=== PATIENT | female | born 1975 | race African-American/Black ===

== ENCOUNTER 2020-07-07 05:25 | Emergency (ER) | payer OTHER ==
[~2020-07-07] VITALS: Ht 175.3 cm; Wt 131.5 kg
[2020-07-07] MEDS ORDERED: ELIQUIS2.5 MG (05:38)
[2020-07-07] MEDS ORDERED: TOPROL XL25 M1 (05:38)
[2020-07-07] MEDS ORDERED: FORTAMET1000 MG (05:39)
[2020-07-07] MEDS ORDERED: LANTUS SOL100 UNIT/1 (05:39)
[2020-07-07] MEDS ORDERED: HUMALOG100 UNIT/1 (05:39)
== END 2020-07-07 12:11 | disposition home or self-care (01) ==
LOC: ER 05:25 → CPU-OBS 08:17 → ER 12:11
DX: R07.89 Other chest pain (principal); R06.02 Shortness of breath; Z20.828 Contact with and (suspected) exposure to other viral communicable diseases
CPT/HCPCS: 71250; 82805; 36600; 93005; G0378; G0379

== ENCOUNTER 2021-01-06 08:26 | Emergency (ER) | payer OTHER ==
[~2021-01-06] VITALS: Ht 175.3 cm; Wt 128.8 kg
[~2021-01-06 08:26] MED LIST: ELIQUIS2.5 MG; FORTAMET1000 MG; HUMALOG100 UNIT/1; LANTUS SOL100 UNIT/1; TOPROL XL25 M1
[2021-01-06] MEDS ORDERED: JENTADUETO 2.51 EAC2 (08:49)
[2021-01-06] MEDS ORDERED: CLINDAMYCIN HC300 MG PO (17:02)
[2021-01-06] MEDS ORDERED: INTESTINEX680 M1 PO (17:02)
== END 2021-01-06 17:10 | disposition home or self-care (01) ==
LOC: ER 08:26
DX: L02.31 Cutaneous abscess of buttock (principal); E11.65 Type 2 diabetes mellitus with hyperglycemia; Z79.4 Long term (current) use of insulin

== ENCOUNTER 2021-01-21 19:44 | Emergency (ER) | payer OTHER ==
[~2021-01-21] VITALS: Ht 167.6 cm; Wt 129.7 kg
[~2021-01-21 19:44] MED LIST changes: +CLINDAMYCIN HC300 MG PO; +INTESTINEX680 M1 PO; +JENTADUETO 2.51 EAC2
[2021-01-22] MEDS ORDERED: KETO10TA2 PO (05:46)
[2021-01-22] MEDS ORDERED: SKELAXIN800 MG PO (05:46)
[2021-01-22] MEDS ORDERED: PEPCID20 MG PO (05:46)
== END 2021-01-22 05:54 | disposition home or self-care (01) ==
LOC: ER 19:44
DX: M54.2 Cervicalgia (principal); R06.02 Shortness of breath; E13.65 Other specified diabetes mellitus with hyperglycemia; Z03.818 Encounter for observation for suspected exposure to other biological agents ruled out; Z79.4 Long term (current) use of insulin

== ENCOUNTER 2021-08-01 18:06 | Emergency (ER) | payer OTHER ==
[~2021-08-01] VITALS: Ht 185.4 cm; Wt 78.9 kg
[~2021-08-01 18:06] MED LIST changes: +KETO10TA2 PO; +PEPCID20 MG PO; +SKELAXIN800 MG PO
[2021-08-01] MEDS ORDERED: NITROFURANTOIN100 MG PO (23:55)
== END 2021-08-02 02:49 | disposition home or self-care (01) ==
LOC: ER 18:06
DX: N39.0 Urinary tract infection, site not specified (principal); R50.9 Fever, unspecified; B34.9 Viral infection, unspecified; R73.9 Hyperglycemia, unspecified; Z03.818 Encounter for observation for suspected exposure to other biological agents ruled out

== ENCOUNTER 2021-10-13 18:48 | Emergency (ER) | payer OTHER ==
[~2021-10-13] VITALS: Ht 175.3 cm; Wt 117.9 kg
[~2021-10-13 18:48] MED LIST changes: +NITROFURANTOIN100 MG PO
[2021-10-13] MEDS ORDERED: CLEOCIN HCL300 MG PO (20:15)
[2021-10-13] MEDS ORDERED: FLUCONAZOLE150 MG PO (20:16)
== END 2021-10-13 20:20 | disposition home or self-care (01) ==
LOC: ER 18:48
DX: L02.91 Cutaneous abscess, unspecified (principal); E11.9 Type 2 diabetes mellitus without complications; I10 Essential (primary) hypertension

== ENCOUNTER 2022-08-06 07:30 | Emergency (ER) | payer OTHER ==
[~2022-08-06] VITALS: Ht 185.4 cm; Wt 113.4 kg
[~2022-08-06 07:30] MED LIST changes: +CLEOCIN HCL300 MG PO; +FLUCONAZOLE150 MG PO
== END 2022-08-06 12:12 | disposition home or self-care (01) ==
LOC: ER 07:30
DX: L05.91 Pilonidal cyst without abscess (principal); E11.9 Type 2 diabetes mellitus without complications; Z79.4 Long term (current) use of insulin; I10 Essential (primary) hypertension; Z88.2 Allergy status to sulfonamides; Z88.8 Allergy status to other drugs, medicaments and biological substances

== ENCOUNTER 2023-02-10 08:00 | Emergency (ER) | payer OTHER ==
[~2023-02-10] VITALS: Ht 185.4 cm; Wt 117.5 kg
== END 2023-02-10 09:36 | disposition home or self-care (01) ==
LOC: ER 08:00
DX: L02.31 Cutaneous abscess of buttock (principal)

== ENCOUNTER 2023-09-08 10:12 | Emergency (ER) | payer OTHER ==
[~2023-09-08] VITALS: Ht 182.9 cm; Wt 117.9 kg
[2023-09-08 15:46] LABS: HEMATOCRIT 39.5 % (36.0-45.00); HEMOGLOBIN 13.7 g/dL (12.0-15.00); MEAN CELL VOLUME 85.6 fL (80.00-100.00); MEAN CORPUSCULAR HEMOGLOBIN 29.6 pg (27.00-32.0); MEAN CORPUSCULAR HGB CONC 34.6 g/dl (32.0-36.0); PLATELET COUNT 340 K/uL (150-450); RED BLOOD COUNT 4.62 M/uL (4.00-6.00); RED CELL DISTRIBUTION WIDTH 13.2 % (11.5-14.5)
== END 2023-09-08 17:17 | disposition home or self-care (01) ==
LOC: ER 10:12
PROVIDERS: General Practice
DX: B34.9 Viral infection, unspecified (principal); R53.81 Other malaise; Z20.822 Contact with and (suspected) exposure to COVID-19; I10 Essential (primary) hypertension; E11.9 Type 2 diabetes mellitus without complications; Z79.4 Long term (current) use of insulin; Z88.2 Allergy status to sulfonamides

== ENCOUNTER 2024-06-30 08:18 | Emergency (ER) | payer OTHER ==
[~2024-06-30] VITALS: Ht 167.6 cm; Wt 108.0 kg
[2024-06-30] MEDS ORDERED: FOLIC ACID20 MG (08:25)
[2024-06-30] MEDS ORDERED: KETOROLAC TROMETHAMINE 60 MG VIAL IM ONE (09:00)
== END 2024-06-30 10:01 | disposition home or self-care (01) ==
LOC: ER 08:20
DX: S93.602A Unspecified sprain of left foot, initial encounter (principal); X58.XXXA Exposure to other specified factors, initial encounter; Y93.89 Activity, other specified; Y92.89 Other specified places as the place of occurrence of the external cause; Y99.9 Unspecified external cause status; E11.9 Type 2 diabetes mellitus without complications; Z79.4 Long term (current) use of insulin; I10 Essential (primary) hypertension; Z88.8 Allergy status to other drugs, medicaments and biological substances

== ENCOUNTER 2024-12-22 07:19 | Emergency (ER) | payer OTHER ==
[~2024-12-22] VITALS: Ht 175.3 cm; Wt 106.6 kg
[~2024-12-22 07:19] MED LIST changes: +ELIQUIS5 MG PO; +FOLIC ACID0.4 MG PO; +FOLIC ACID20 MG; +JENTADUETO 2.51 EACH PO; +LANTUS SOL100 UNIT/1 SUBCUTANEO; +TOPROL XL50 M1 PO
[2024-12-22] MEDS ORDERED: ONDANSETRON HCL 2 MG/ML VIAL IV ONE (08:45)
[2024-12-22] MEDS ORDERED: 0.9 % SODIUM CHLORIDE 1,000 ML IV SCH (08:45)
[2024-12-22] MEDS ORDERED: ONDANSETRON HCL 2 MG/ML VIAL ONE (08:55)
[2024-12-22] MEDS ORDERED: FAMOTIDINE/PF 20 MG/2 ML VIAL ONE (08:55)
[2024-12-22] MEDS ORDERED: FAMOTIDINE/PF 20 MG/2 ML VIAL IV PUSH ONE (09:00)
[2024-12-22 09:22] LABS: HEMATOCRIT 38.5 % (36.0-45.00); HEMOGLOBIN 13.3 g/dL (12.0-15.00); MEAN CELL VOLUME 87.6 fL (80.00-100.00); MEAN CORPUSCULAR HEMOGLOBIN 30.1 pg (27.00-32.0); MEAN CORPUSCULAR HGB CONC 34.4 g/dl (32.0-36.0); PLATELET COUNT 262 K/uL (150-450); RED CELL DISTRIBUTION WIDTH 13.1 % (11.5-14.5)
[2024-12-22 10:22] LABS: CALCIUM 9.5 mg/dL (8.5-10.1); CREATININE SERUM 1.18 mg/dL (0.55-1.02); GFR 49.1; POTASSIUM 3.64 mEq/L (3.5-5.1)
== END 2024-12-22 14:55 | disposition home or self-care (01) ==
LOC: ER 07:22
PROVIDERS: Emergency Medicine
DX: K52.89 Other specified noninfective gastroenteritis and colitis (principal); Z86.711 Personal history of pulmonary embolism; Z88.8 Allergy status to other drugs, medicaments and biological substances; I10 Essential (primary) hypertension; E11.65 Type 2 diabetes mellitus with hyperglycemia; Z79.4 Long term (current) use of insulin
CPT/HCPCS: 36415; 96365; 96366; 99282; J2405; J3490; J7030